=== PATIENT | male | born 1940 | race Asian ===

== ENCOUNTER 2019-02-19 02:43 | Emergency (ER) | payer OTHER ==
[~2019-02-19] VITALS: Ht 167.6 cm; Wt 54.4 kg
[2019-02-19 02:50] VITALS: BP 165/85
--- NOTE | 2019-02-19 02:50 | NUR ---
PT ASSESSMENT COMPLETE. PT SEATED UPRIGHT IN BED. [id number] UP. WILL CONTINUE TO MONITOR.
--- NOTE | 2019-02-19 02:50 | NUR ---
JENNIE, TAKEN TO BED #7
[2019-02-19] MEDS ORDERED: ALBUTEROL SULFATE/IPRATROPIU 3 ML SOL IH ONE (02:55)
[2019-02-19] MEDS ORDERED: NACL 0.9% 500 ML IV ONE (03:25)
[2019-02-19] MEDS ORDERED: methylPREDNISolone SS 125 MG/2 ML VIAL IVP ONE (03:25)
[2019-02-19 03:35] LABS: BASOPHILS # (AUTO) 0.1 K/uL (0.00-0.22); EOSINOPHILS # (AUTO) 1.2 K/uL (0-0.4); EOSINOPHILS % (AUTO) 10.5 % (0.0-4.0); HEMATOCRIT 39.2 % (36-52); HEMOGLOBIN 12.1 g/dL (12.0-18.0); LYMPHOCYTES # (AUTO) 2.5 K/uL (2.0-11.5); LYMPHOCYTES % (AUTO) 21.9 % (20.5-51.1); MEAN CORPUSCULAR HEMOGLOBIN 22 pg (27-31); MEAN CORPUSCULAR HGB CONC 31 g/dL (33-37); MEAN CORPUSCULAR VOLUME 71.2 fL (80-94); MONOCYTES # (AUTO) 0.7 K/uL (0.8-1.0); MONOCYTES % (AUTO) 6.6 % (1.7-9.3); NEUTROPHILS # (AUTO) 6.8 K/uL (1.8-7.7); PLATELET COUNT (AUTO) 291 K/uL (140-450); RED BLOOD CELL COUNT(AUTO) 5.51 MIL/uL (4.20-6.10); RED CELL DISTRIBUTION WIDTH 15.8 % (11.6-13.7); WHITE BLOOD COUNT (AUTO) 11.3 K/uL (4.8-10.8)
--- NOTE | 2019-02-19 03:45 | NUR ---
PT O2 SAT AT 100% ON 3L NC. RR EVEN AND UNLABORED. WILL CONTINUE TO MONITOR.
[2019-02-19 03:53] LABS: PROTHROMBIN TIME 9.8 secs (10.8-13.4)
[2019-02-19 03:55] LABS: ALBUMIN 3.6 g/dL (3.4-5.0); ANION GAP 17.6 (8-16); ASPARTATE AMINOTRANSFERASE 21 U/L (15-37); CARBON DIOXIDE 24.9 mmol/L (21-32); CHLORIDE 104 mmol/L (98-107); CREATININE 1.2 mg/dL (0.7-1.3); GLUCOSE 141 mg/dL (74-106); POTASSIUM 3.5 mmol/L (3.5-5.1); SODIUM SERUM 143 mmol/L (136-145); TOTAL BILIRUBIN 0.4 mg/dL (0.0-1.0); UREA NITROGEN, BLOOD 25 mg/dL (7-18)
[2019-02-19 05:19] LABS: APPEARANCE,URINE CLOUDY (CLEAR); BILIRUBIN,URINE NEGATIVE (NEGATIVE); BLOOD, URINE 3+ (NEGATIVE); COLOR,URINE YELLOW (YELLOW); LEUKOCYTE ESTERASE ,URINE NEGATIVE (NEGATIVE); NITRITE, URINE NEGATIVE (NEGATIVE); UGLUCOSE NEGATIVE (NEGATIVE)
[2019-02-19 05:27] LABS: HYALINE CASTS, URINE 0-10 /LPF (None Seen); RBC,URINE 11-20 (MOD) /HPF (0-5); WBC,URINE 0-5 /HPF (0-5)
[2019-02-19] MEDS ORDERED: GABA100C PO (05:29)
[2019-02-19] MEDS ORDERED: MONT10TA35 PO (05:29)
[2019-02-19] MEDS ORDERED: CAND4TAB PO (05:29)
[2019-02-19] MEDS ORDERED: ATOR10TA PO (05:29)
[2019-02-19] MEDS ORDERED: ALLO100T21 PO (05:29)
[2019-02-19] MEDS ORDERED: LEVO5TAB32 PO (05:34)
[2019-02-19] MEDS ORDERED: ALBU0.0912 IH (05:34)
--- NOTE | 2019-02-19 05:34 | NUR ---
PT TAKEN OFF OXYGEN THERAPY TO EVALUATE RESPIRATORY STATUS. PT O2 SATURATION ON RA AT 98%. RR EVEN AND UNLABORED.
--- NOTE | 2019-02-19 06:05 | NUR ---
O2 DROPPED TO 92% RA. PT HOB ELEVATED. O2 SAT @ 98% RA.
--- NOTE | 2019-02-19 06:30 | NUR ---
PT O2 SAT MAINTAINED AT 96% RA. RR EVEN AND UNLABORED. WILL CONTINUE TO MONITOR.
--- NOTE | 2019-02-19 06:58 | NUR ---
PT UP FOR DISCHARGE. S/W SEVERINO, SISTER WHO WILL BE PICKING UP PT WITH ETA OF APPROXIMATELY 60 MINUTES.
--- NOTE | 2019-02-19 07:07 | NUR ---
BEDSIDE REPORT GIVEN TO [facility]. TRANSFER OF CARE AT THIS TIME.
--- NOTE | 2019-02-19 07:10 | NUR ---
S/W SEVERINO, SISTER WHO STATED "I WILL SEND UBER FOR HIM." [facility] MADE AWARE.
[2019-02-19 07:22] VITALS: BP 155/85
--- NOTE | 2019-02-19 07:23 | NUR ---
Patient discharged with v/s stable. Written and verbal after care instructions given and explained. Patient alert, oriented and verbalized understanding of instructions. Ambulatory with steady gait. All questions addressed prior to discharge. ID band removed. Patient advised to follow up with PMD. Rx of prednisone/ combivent given. Patient educated on indication of medication including possible reaction and side effects. Opportunity to ask questions provided and answered.
== END 2019-02-19 07:23 | disposition home or self-care (01) ==
LOC: MED 02:43
DX: J44.1 Chronic obstructive pulmonary disease with (acute) exacerbation (principal); Z79.899 Other long term (current) drug therapy
CPT/HCPCS: 36415; 36600; 71045; 80053; 81001; 82803; 83605; 83880; 84484; 85025; 85610; 85730; 87040; 87086; 93005; 94640; 96374; 99284; J2930; J7030; J7620; Q0092